=== PATIENT | male | born 1995 ===

== ENCOUNTER 2018-09-30 01:01 | Emergency (ER) | payer SELFPAY ==
[~2018-09-30] VITALS: Ht 180.3 cm; Wt 93.0 kg
[2018-09-30 01:08] VITALS: Ht 180.3 cm; Wt 93.0 kg
[2018-09-30] MEDS ORDERED: TORADOL10 MG PO (02:25)
[2018-09-30 02:47] VITALS: BP 130/77
== END 2018-09-30 02:48 | disposition home or self-care (01) ==
LOC: D.ER 01:01
DX: S60.052A Contusion of left little finger without damage to nail, initial encounter (principal); X58.XXXA Exposure to other specified factors, initial encounter; Y93.89 Activity, other specified; Y92.89 Other specified places as the place of occurrence of the external cause